=== PATIENT | male | born 1940 | race Caucasian/White ===

== ENCOUNTER 2018-01-24 12:23 | Inpatient (IN) | payer MEDICARE ==
[~2018-01-24] VITALS: Ht 170.2 cm; Wt 78.0 kg
[2018-01-24] MEDS ORDERED: MAG HYDROX/AL HYDROX/SIMETH 30 ML UDC PO PRN (13:30)
[2018-01-24 13:52] VITALS: BP 146/90
[2018-01-24] MEDS ORDERED: ASPI-1169 PO (13:59)
[2018-01-24] MEDS ORDERED: ATOR20TA PO (13:59)
[2018-01-24] MEDS ORDERED: GABA-532 PO (13:59)
[2018-01-24] MEDS ORDERED: FLUO10CA26 PO (13:59)
[2018-01-24] MEDS ORDERED: TRAZ150T75 PO (13:59)
[2018-01-24] MEDS ORDERED: MIRT15TA7 PO (13:59)
[2018-01-24] MEDS ORDERED: AMLO5TAB2 PO (13:59)
[2018-01-24] MEDS ORDERED: BUSP5TAB3 PO (13:59)
[2018-01-24] MEDS: hydrOXYzine PAMOATE 25 MG CAPSULE PO PRN (14:29)
[2018-01-24 16:00] VITALS: BP 122/62
[2018-01-24] MEDS ORDERED: LEVO25TA9 PO (16:10)
[2018-01-24] MEDS: clonazePAM 0.5 MG TABLET PO SCH (18:22)
[2018-01-24 20:21] VITALS: BP 144/71
[2018-01-24] MEDS: TRAZODONE 50 MG TABLET PO SCH (21:13)
[2018-01-25] MEDS: TEMAZEPAM 7.5 MG CAPSULE PO PRN (00:58)
[2018-01-25] MEDS: ACETAMINOPHEN 325 MG TABLET PO PRN ×2 (06:12→12:54)
[2018-01-25 07:45] LABS: ALANINE AMINOTRANSFERASE 45 U/L (12-78); ALBUMIN 3.1 g/dL (3.4-5.0); ALKALINE PHOSPHATASE 60 U/L (46-116); ASPARTATE AMINOTRANSFERASE 22 U/L (15-37); BILIRUBIN,TOTAL 0.8 mg/dL (0.2-1.0); CALCIUM, SERUM 8.4 mg/dL (8.5-10.1); CARBON DIOXIDE 26 mmol/L (21-32); CHLORIDE 97 mmol/L (98-107); CREATININE 1.4 mg/dL (0.6-1.3); GLUCOSE 115 mg/dL (74-106); POTASSIUM 3.6 mmol/L (3.5-5.1); SODIUM SERUM 132 mmol/L (136-145); UREA NITROGEN, BLOOD 20 mg/dL (7-18)
[2018-01-25 08:00] VITALS: BP 138/70
[2018-01-25] MEDS: SERTRALINE HCL 50 MG TABLET PO SCH (08:35)
[2018-01-25] MEDS: LEVOTHYROXINE SODIUM 25 MCG TABLET PO SCH (08:35)
[2018-01-25] MEDS: clonazePAM 0.5 MG TABLET PO SCH ×3 (08:35→17:02)
[2018-01-25] MEDS: AMLODIPINE BESYLATE 5 MG TABLET PO SCH (08:36)
[2018-01-25] MEDS: ASPIRIN 81 MG TAB.CHEW PO SCH (08:36)
[2018-01-25] MEDS: MAGNESIUM HYDROXIDE 30 ML UDC PO PRN (13:58)
[2018-01-25 16:00] VITALS: BP 134/65
[2018-01-25 20:00] VITALS: BP 128/69
[2018-01-25] MEDS: TRAZODONE 50 MG TABLET PO SCH (21:19)
[2018-01-25] MEDS: ATORVASTATIN 10 MG TABLET PO SCH (21:19)
[2018-01-26] MEDS: ACETAMINOPHEN 325 MG TABLET PO PRN (02:43)
[2018-01-26] MEDS: clonazePAM 0.5 MG TABLET PO SCH ×3 (09:03→17:12)
[2018-01-26] MEDS: AMLODIPINE BESYLATE 5 MG TABLET PO SCH (09:03)
[2018-01-26] MEDS: LEVOTHYROXINE SODIUM 25 MCG TABLET PO SCH (09:03)
[2018-01-26] MEDS: ASPIRIN 81 MG TAB.CHEW PO SCH (09:04)
[2018-01-26] MEDS: SERTRALINE HCL 50 MG TABLET PO SCH (09:04)
[2018-01-26] MEDS: MAGNESIUM HYDROXIDE 30 ML UDC PO PRN (17:11)
[2018-01-26 20:00] VITALS: BP 121/69
[2018-01-26] MEDS: TRAZODONE 50 MG TABLET PO SCH (21:04)
[2018-01-26] MEDS: ATORVASTATIN 10 MG TABLET PO SCH (21:09)
[2018-01-27 08:34] VITALS: BP 142/71
[2018-01-27] MEDS: ASPIRIN 81 MG TAB.CHEW PO SCH (08:56)
[2018-01-27] MEDS: clonazePAM 0.5 MG TABLET PO SCH ×3 (08:56→17:05)
[2018-01-27] MEDS: AMLODIPINE BESYLATE 5 MG TABLET PO SCH (08:56)
[2018-01-27] MEDS: SERTRALINE HCL 50 MG TABLET PO SCH (08:56)
[2018-01-27] MEDS: LEVOTHYROXINE SODIUM 25 MCG TABLET PO SCH (08:56)
[2018-01-27 16:33] VITALS: BP 120/69
[2018-01-27] MEDS: hydrOXYzine PAMOATE 25 MG CAPSULE PO PRN (19:31)
[2018-01-27 20:00] VITALS: BP 128/64
[2018-01-27] MEDS: ATORVASTATIN 10 MG TABLET PO SCH (21:18)
[2018-01-27] MEDS: TRAZODONE 50 MG TABLET PO SCH (21:18)
[2018-01-27] MEDS: TEMAZEPAM 7.5 MG CAPSULE PO PRN (21:18)
[2018-01-28 06:26] LABS: BASOPHILS % (AUTO) 0.7 % (0.0-2.0); EOSINOPHILS % (AUTO) 4.3 % (0.0-6.0); HEMATOCRIT 36 % (39-51); LYMPHOCYTES # (AUTO) 0.6 /CMM (0.8-4.8); LYMPHOCYTES % (AUTO) 9.8 % (20.0-44.0); MEAN CORPUSCULAR HEMOGLOBIN 30 PG (26.0-33.0); MEAN CORPUSCULAR HGB CONC 33 g/dl (31.0-36.0); MEAN CORPUSCULAR VOLUME 90 fL (80-96); MONOCYTES # (AUTO) 0.5 /CMM (0.1-1.30); MONOCYTES % (AUTO) 8.8 % (2.0-12.0); NEUTROPHILS # (AUTO) 4.6 /CMM (1.8-8.9); NEUTROPHILS % (AUTO) 76.4 % (43.0-81.0); PLATELET COUNT (AUTO) 173 /CMM (150-450); RED BLOOD CELL COUNT(AUTO) 3.99 MIL/uL (4.5-6.0)
[2018-01-28 07:05] LABS: CALCIUM, SERUM 8.5 mg/dL (8.5-10.1); CARBON DIOXIDE 26 mmol/L (21-32); CHLORIDE 103 mmol/L (98-107); CREATININE 1.3 mg/dL (0.6-1.3); GLUCOSE 106 mg/dL (74-106); MAGNESIUM 2.4 mg/dL (1.8-2.4); PHOSPHORUS 3.6 mg/dL (2.5-4.9); POTASSIUM 4.4 mmol/L (3.5-5.1); SODIUM SERUM 137 mmol/L (136-145); UREA NITROGEN, BLOOD 25 mg/dL (7-18)
[2018-01-28] MEDS: ASPIRIN 81 MG TAB.CHEW PO SCH (08:21)
[2018-01-28] MEDS: clonazePAM 0.5 MG TABLET PO SCH ×3 (08:21→16:34)
[2018-01-28] MEDS: AMLODIPINE BESYLATE 5 MG TABLET PO SCH (08:21)
[2018-01-28] MEDS: LEVOTHYROXINE SODIUM 25 MCG TABLET PO SCH (08:21)
[2018-01-28] MEDS: SERTRALINE HCL 50 MG TABLET PO SCH (08:21)
[2018-01-28] MEDS: hydrOXYzine PAMOATE 25 MG CAPSULE PO PRN ×3 (08:24→21:10)
[2018-01-28 09:00] VITALS: BP 156/71
[2018-01-28 17:04] VITALS: BP 148/78
[2018-01-28 20:00] VITALS: BP 126/66
[2018-01-28] MEDS: ATORVASTATIN 10 MG TABLET PO SCH (21:27)
[2018-01-28] MEDS: TRAZODONE 50 MG TABLET PO SCH (21:28)
[2018-01-29 08:00] VITALS: BP 143/72
[2018-01-29] MEDS: ASPIRIN 81 MG TAB.CHEW PO SCH (09:04)
[2018-01-29] MEDS: SERTRALINE HCL 50 MG TABLET PO SCH (09:04)
[2018-01-29] MEDS: LEVOTHYROXINE SODIUM 25 MCG TABLET PO SCH (09:04)
[2018-01-29] MEDS: AMLODIPINE BESYLATE 5 MG TABLET PO SCH (09:05)
[2018-01-29] MEDS: clonazePAM 0.5 MG TABLET PO SCH ×3 (09:05→16:36)
[2018-01-29 16:00] VITALS: BP 129/64
[2018-01-29 20:00] VITALS: BP 115/71
[2018-01-29] MEDS: diphenhydrAMINE HCL/ZINC ACET CREAM 28.3 GM TUBE TP PRN (20:44)
[2018-01-29] MEDS: MAGNESIUM HYDROXIDE 30 ML UDC PO PRN (21:08)
[2018-01-29] MEDS: TRAZODONE 50 MG TABLET PO SCH (21:08)
[2018-01-29] MEDS: hydrOXYzine PAMOATE 25 MG CAPSULE PO PRN (21:08)
[2018-01-29] MEDS: ATORVASTATIN 10 MG TABLET PO SCH (21:08)
[2018-01-30 08:00] VITALS: BP 138/67
[2018-01-30] MEDS: ASPIRIN 81 MG TAB.CHEW PO SCH (09:28)
[2018-01-30] MEDS: AMLODIPINE BESYLATE 5 MG TABLET PO SCH (09:28)
[2018-01-30] MEDS: LEVOTHYROXINE SODIUM 25 MCG TABLET PO SCH (09:29)
[2018-01-30] MEDS: SERTRALINE HCL 50 MG TABLET PO SCH (09:34)
[2018-01-30] MEDS: clonazePAM 0.5 MG TABLET PO SCH ×3 (09:34→17:33)
[2018-01-30] MEDS: MAGNESIUM HYDROXIDE 30 ML UDC PO PRN (10:42)
[2018-01-30] MEDS: hydrOXYzine PAMOATE 25 MG CAPSULE PO PRN (10:42)
[2018-01-30] MEDS: diphenhydrAMINE HCL/ZINC ACET CREAM 28.3 GM TUBE TP PRN ×3 (10:43→21:17)
[2018-01-30 16:09] VITALS: BP 109/53
[2018-01-30 20:00] VITALS: BP 116/63
[2018-01-30] MEDS: TRAZODONE 50 MG TABLET PO SCH (21:10)
[2018-01-30] MEDS: ATORVASTATIN 10 MG TABLET PO SCH (21:10)
[2018-01-31 08:00] VITALS: BP 143/70
[2018-01-31] MEDS: SERTRALINE HCL 50 MG TABLET PO SCH (08:47)
[2018-01-31] MEDS: LEVOTHYROXINE SODIUM 25 MCG TABLET PO SCH (08:47)
[2018-01-31] MEDS: AMLODIPINE BESYLATE 5 MG TABLET PO SCH (08:47)
[2018-01-31] MEDS: clonazePAM 0.5 MG TABLET PO SCH ×3 (08:48→17:17)
[2018-01-31] MEDS: ASPIRIN 81 MG TAB.CHEW PO SCH (08:48)
[2018-01-31 16:00] VITALS: BP 114/60
[2018-01-31] MEDS: diphenhydrAMINE HCL/ZINC ACET CREAM 28.3 GM TUBE TP PRN (16:17)
[2018-01-31 20:00] VITALS: BP 132/65
[2018-01-31 20:04] VITALS: BP 132/65
[2018-01-31] MEDS: TRAZODONE 50 MG TABLET PO SCH (21:10)
[2018-01-31] MEDS: hydrOXYzine PAMOATE 25 MG CAPSULE PO PRN (21:10)
[2018-01-31] MEDS: ATORVASTATIN 10 MG TABLET PO SCH (21:10)
[2018-02-01 08:00] VITALS: BP 138/62
[2018-02-01] MEDS: ASPIRIN 81 MG TAB.CHEW PO SCH (09:00)
[2018-02-01] MEDS: LEVOTHYROXINE SODIUM 25 MCG TABLET PO SCH (09:00)
[2018-02-01] MEDS: SERTRALINE HCL 50 MG TABLET PO SCH (09:00)
[2018-02-01] MEDS: clonazePAM 0.5 MG TABLET PO SCH ×3 (09:01→17:04)
[2018-02-01] MEDS: AMLODIPINE BESYLATE 5 MG TABLET PO SCH (09:01)
[2018-02-01 16:00] VITALS: BP 132/62
[2018-02-01] MEDS: diphenhydrAMINE HCL/ZINC ACET CREAM 28.3 GM TUBE TP PRN (17:05)
[2018-02-01] MEDS: hydrOXYzine PAMOATE 25 MG CAPSULE PO PRN (20:06)
[2018-02-01 20:12] VITALS: BP 131/63
[2018-02-01] MEDS: TRAZODONE 50 MG TABLET PO SCH (21:04)
[2018-02-01] MEDS: ATORVASTATIN 10 MG TABLET PO SCH (21:05)
[2018-02-02 08:00] VITALS: BP 113/57
[2018-02-02] MEDS: ASPIRIN 81 MG TAB.CHEW PO SCH (08:45)
[2018-02-02] MEDS: AMLODIPINE BESYLATE 5 MG TABLET PO SCH (08:45)
[2018-02-02] MEDS: SERTRALINE HCL 50 MG TABLET PO SCH (08:45)
[2018-02-02] MEDS: LEVOTHYROXINE SODIUM 25 MCG TABLET PO SCH (08:45)
[2018-02-02] MEDS: clonazePAM 0.5 MG TABLET PO SCH ×2 (09:00→17:19)
[2018-02-02] MEDS: hydrOXYzine PAMOATE 25 MG CAPSULE PO PRN ×2 (15:20→20:23)
[2018-02-02] MEDS: diphenhydrAMINE HCL/ZINC ACET CREAM 28.3 GM TUBE TP PRN (20:24)
[2018-02-02] MEDS: TRAZODONE 50 MG TABLET PO SCH (21:04)
[2018-02-02] MEDS: ATORVASTATIN 10 MG TABLET PO SCH (21:05)
[2018-02-03 08:00] VITALS: BP 139/70
[2018-02-03 08:31] VITALS: BP 139/70
[2018-02-03] MEDS: ASPIRIN 81 MG TAB.CHEW PO SCH (08:31)
[2018-02-03] MEDS: AMLODIPINE BESYLATE 5 MG TABLET PO SCH (08:31)
[2018-02-03] MEDS: SERTRALINE HCL 50 MG TABLET PO SCH (08:31)
[2018-02-03] MEDS: clonazePAM 0.5 MG TABLET PO SCH (08:31)
[2018-02-03] MEDS: LEVOTHYROXINE SODIUM 25 MCG TABLET PO SCH (08:31)
[2018-02-03] MEDS: hydrOXYzine PAMOATE 25 MG CAPSULE PO PRN (11:17)
== END 2018-02-03 13:07 | disposition home or self-care (01) | DRG 885 ==
LOC: GPS 12:23 → GPSOV2 01-25 19:37 → GPS 01-28 10:13 → GPSOV2 02-02 12:42
PROVIDERS: ADMIT Psychiatry & Neurology Psychiatry; ATTEND Psychiatry & Neurology Psychiatry
DX: F33.9 Major depressive disorder, recurrent, unspecified (principal); N18.9 Chronic kidney disease, unspecified; N17.9 Acute kidney failure, unspecified; E87.1 Hypo-osmolality and hyponatremia; E44.1 Mild protein-calorie malnutrition; R45.851 Suicidal ideations; F41.9 Anxiety disorder, unspecified; I12.9 Hypertensive chronic kidney disease with stage 1 through stage 4 chronic kidney disease, or unspecified chronic kidney disease; E78.5 Hyperlipidemia, unspecified; E03.9 Hypothyroidism, unspecified; I25.10 Atherosclerotic heart disease of native coronary artery without angina pectoris; Z91.5 Personal history of self-harm; Z95.5 Presence of coronary angioplasty implant and graft; Z82.49 Family history of ischemic heart disease and other diseases of the circulatory system; Z82.0 Family history of epilepsy and other diseases of the nervous system; F29 Unspecified psychosis not due to a substance or known physiological condition; R33.9 Retention of urine, unspecified; E86.9 Volume depletion, unspecified
CPT/HCPCS: 36415; 80048-TC; 80053-TC; 83735-TC; 84100-TC; 85025-TC; A4606; Q0177; Z7610

== ENCOUNTER 2023-07-24 17:53 | Emergency (ER) | payer OTHER, MEDICAID ==
[~2023-07-24] VITALS: Ht 170.2 cm; Wt 66.2 kg
[~2023-07-24 17:53] MED LIST: AMLO-212 PO; ASPI-1169 PO; ATOR20TA PO; LEVO25TA9 PO
[2023-07-24 18:18] VITALS: TEMP 98.1
[2023-07-24] MEDS ORDERED: LIDOCAINE 2% 20 ML MDV ONE (20:21)
[2023-07-24] MEDS: LIDOCAINE 1%-EPI 1:100,000 20 ML VIAL TP ONE (20:28)
[2023-07-24] MEDS ORDERED: TDAP [DIPH/PERTUSSIS/TET] 0.5 ML VIAL IM ONE (20:40)
[2023-07-24] MEDS: TDAP [DIPH/PERTUSSIS/TET] 0.5 ML VIAL IM ONE (20:42)
[2023-07-24 21:55] VITALS: BP 132/78; O2SAT 99
== END 2023-07-24 21:56 | disposition home or self-care (01) ==
LOC: ER 18:08
DX: S01.01XA Laceration without foreign body of scalp, initial encounter (principal); I10 Essential (primary) hypertension; Z88.8 Allergy status to other drugs, medicaments and biological substances; W18.30XA Fall on same level, unspecified, initial encounter; Y93.89 Activity, other specified; Y92.89 Other specified places as the place of occurrence of the external cause; Y99.8 Other external cause status
CPT/HCPCS: 12002; 70450; 90471; 90715; 99285; J3490